=== PATIENT | female | born 1975 | race Caucasian/White ===

== ENCOUNTER 2019-03-27 05:27 | Day surgery (SDC) | payer OTHER ==
[2019-03-27] MEDS ORDERED: DOXYCYCLINE HY100 M3 PO (10:28)
[2019-03-27] MEDS ORDERED: Tylenol #3 PO (10:28)
== END 2019-03-27 15:55 | disposition home or self-care (01) ==
LOC: CIR.AMB 05:27
DX: N84.0 Polyp of corpus uteri (principal); N84.1 Polyp of cervix uteri; N92.0 Excessive and frequent menstruation with regular cycle